=== PATIENT | male | born 1980 | race Caucasian/White ===

== ENCOUNTER 2024-04-17 18:38 | Emergency (ER) | payer OTHER ==
[~2024-04-17] VITALS: Ht 177.8 cm; Wt 99.8 kg
[2024-04-17 18:43] VITALS: BP 145/66; TEMP 98.7; O2SAT 100
== END 2024-04-17 18:55 | disposition left against medical advice (07) ==
LOC: ER 18:38
DX: R42 Dizziness and giddiness (principal); Z53.21 Procedure and treatment not carried out due to patient leaving prior to being seen by health care provider